=== PATIENT | female | born 1945 | race Caucasian/White ===

== ENCOUNTER 2018-02-13 19:25 | Emergency (ER) | payer OTHER ==
[~2018-02-13] VITALS: Ht 160 cm; Wt 69.0 kg
[2018-02-13] MEDS ORDERED: MOTRIN600 MG PO (20:51)
[2018-02-13 21:16] VITALS: BP 167/60
== END 2018-02-13 21:17 | disposition home or self-care (01) ==
LOC: EME 19:25
DX: S93.402A Sprain of unspecified ligament of left ankle, initial encounter (principal); W10.9XXA Fall (on) (from) unspecified stairs and steps, initial encounter; Z88.6 Allergy status to analgesic agent
CPT/HCPCS: 73610; 99281; 99284